=== PATIENT | female | born 1955 | race Caucasian/White ===

== ENCOUNTER 2019-08-29 17:20 | Observation (INO) | payer OTHER ==
[2019-08-29 17:58] LABS: Absolute Lymphocytes (CBC) 0.6 K/uL (0.7-4.9); Basophils % 0.2 % (0-1.3); Hematocrit 43.5 % (36.0-45.0); Lymphocytes % 7.2 % (15.3-44.8); MPV 8.2 fL (7.6-11.3); RBC Red Blood Cell Count 4.88 M/uL (3.86-4.86)
[2019-08-29 18:01] LABS: Protime INR 1.1
[2019-08-29 18:11] LABS: Urine Bacteria <20 /HPF (<20); Urine Culture Reflex Order NOT NEEDED; Urine RBC <5 /HPF (NONE SEEN)
--- NOTE | 2019-08-29 18:14 | RAD REPORT ---
EXAM DESCRIPTION: Elvi Single View08/29/2019 6:09 pm CLINICAL HISTORY: Chest pain COMPARISON: none FINDINGS: The lungs appear clear of acute infiltrate. The heart is normal size IMPRESSION: No acute abnormalities displayed
[2019-08-29 18:19] LABS: ALT/SGPT 19 U/L (12-78); AST/SGOT 18 U/L (15-37); Albumin 4.3 g/dL (3.4-5.0); Alkaline Phosphatase 113 U/L (45-117); BUN Blood Urea Nitrogen 7 mg/dL (7-18); Bicarbonate 27 mmol/L (21-32); Bilirubin Direct 0.1 mg/dL (0-0.2); Bilirubin Total 0.3 mg/dL (0.2-1.0); Glucose Level 96 mg/dL (74-106); Magnesium 2.1 mg/dL (1.8-2.4); NT PRO-BNP 81 pg/mL (<125); Potassium 3.4 mmol/L (3.5-5.1); Protein, Total 8.1 g/dL (6.4-8.2); Sodium Level 136 mmol/L (136-145); Troponin (Emerg Dept Use Only) < 0.02 ng/mL (0.0-0.045)
[2019-08-29] MEDS ORDERED: NA CHLORIDE 0.9% 250 ML ONE (18:19)
[2019-08-29] MEDS ORDERED: ASPIRIN EC 81 MG TAB PO ONE (18:19)
[2019-08-29] MEDS ORDERED: AZITHROMYCIN 500 MG INJ IVPB ONE (18:19)
[2019-08-29] MEDS ORDERED: FAMOTIDINE 20 MG/2 ML VIAL IV ONE (18:20)
[2019-08-29] MEDS ORDERED: NA CHLORIDE 0.9% 1,000 ML ONE (18:20)
[2019-08-29] MEDS ORDERED: CEFTRIAXONE/SWI 1gm 1 GM/10 ML SYR ONE (18:20)
[2019-08-29] MEDS ORDERED: ONDANSETRON 4 MG/2 ML VIAL ONE (18:27)
--- NOTE | 2019-08-29 18:53 | ER ---
Nurse's Notes [facility] Name: Jennifer Byers Age: 63 yrs Sex: Female : 1955 Arrival Date: 08/29/2019 Time: 17:22 Bed 25 Private MD: Diagnosis: Fever, unspecified;Essential (primary) hypertension;Chest pain, unspecified;Acute upper respiratory infection, unspecified Presentation: 08/29 17:29 Presenting complaint: Patient states: Midsternal chest pain with nausea, pain radiating sg up into the right side of the neck, pt states having been diagnosed with Bronchitis at urgent care and has taken one dose of abx, z-karen at around 1500 today. Transition of care: patient was not received from another setting of care. Onset of symptoms was August 29, 2019. Risk Assessment: Do you want to hurt yourself or someone else? Patient reports no desire to harm self or others. Initial Sepsis Screen: Does the patient meet any 2 criteria? No. Patient's initial sepsis screen is negative. Does the patient have a suspected source of infection? No. Patient's initial sepsis screen is negative. Care prior to arrival: None. 17:29 Method Of Arrival: Ambulatory sg 17:29 Acuity: KALPESH 3 sg Historical: - Allergies: 17:31 No Known Allergies; sg - Home Meds: 17:31 amlodipine oral [Active]; sg - PMHx: 17:31 Hypertension; sg - PSHx: 17:31 None; sg - Immunization history:: Adult Immunizations up to date. - Social history:: Smoking status: Patient/guardian denies using tobacco. - Ebola Screening: : Patient negative for fever greater than or equal to 101.5 degrees Fahrenheit, and additional compatible Ebola Virus Disease symptoms Patient denies exposure to infectious person Patient denies travel to an Ebola-affected area in the 21 days before illness onset No symptoms or risks identified at this time. - Family history:: not pertinent. Screenin:53 Abuse screen: Denies threats or abuse. Denies injuries from another. Nutritional mg2 screening: No deficits noted. Tuberculosis screening: No symptoms or risk factors identified. Fall Risk IV access (20 points). Assessment: 18:29 General: Appears in no apparent distress. comfortable, Behavior is calm, cooperative. mg2 Pain: Complains of pain in chest Pain radiates to neck. Neuro: Level of Consciousness is awake, alert, obeys commands, Oriented to person, place, time, situation. Cardiovascular: Capillary refill < 3 seconds Patient's skin is warm and dry. Respiratory: Airway is patent Respiratory effort is even, unlabored, Respiratory pattern is regular, symmetrical. GI: Abdomen is flat, non-distended, Reports nausea. : Urine is pls see urine dip. : Reports pain in bilateral flank(s), in lower back. EENT: No signs and/or symptoms were reported regarding the EENT system. Derm: Skin is intact, is healthy with good turgor, Skin is pink, warm \T\ dry. normal. Musculoskeletal: Circulation, motion, and sensation intact. Capillary refill < 3 seconds. 20:28 Reassessment: patient agreed for admission. updated about the waiting time. mg2 Vital Signs: 17:52 BP 142 / 73; Pulse 98; Resp 18; Temp 99.2; Pulse Ox 98% on R/A; mg2 19:04 Weight 65.32 kg; Height 5 ft. 4 in. (162.56 cm); rv 20:28 BP 115 / 60; Pulse 75; Resp 18; Pulse Ox 98% on R/A; mg2 22:12 BP 120 / 89; Pulse 78; Resp 18; Temp 99.4; Pulse Ox 98% on R/A; mg2 19:04 Body Mass Index 24.72 (65.32 kg, 162.56 cm) rv ED Course: 17:22 Patient arrived in ED. rg4 17:28 Arm band placed on. sg 17:29 Jhon Alan, TRAE is Primary Nurse. mg2 17:30 Triage completed. sg 17:53 Cordell Barrett MD is Attending Physician. josé luis 17:53 No provider procedures requiring assistance completed. Inserted saline lock: 20 gauge mg2 in left antecubital area, using aseptic technique. Blood collected. 18:08 XRAY Chest (1 view) In Process Unspecified. EDMS 18:30 Patient has correct armband on for positive identification. media monitor on. Pulse mg2 ox on. NIBP on. Door closed. 18:51 Eda Orona MD is Hospitalizing Provider. josé luis 22:10 Patient admitted, IV remains in place. mg2 Administered Medications: 18:27 Drug: Zithromax 500 mg Route: IVPB; Infused Over: 1 hrs; Site: left antecubital; mg2 22:08 Follow up: Response: No adverse reaction; IV Status: Completed infusion; IV Intake: mg2 250ml 18:27 Drug: Pepcid 20 mg Route: IVP; Site: left antecubital; mg2 22:07 Follow up: Response: No adverse reaction mg2 18:28 Drug: NS 0.9% 1000 ml Route: IV; Rate: 1 bolus; Site: left antecubital; mg2 22:09 Follow up: Response: No adverse reaction; IV Status: Completed infusion; IV Intake: mg2 1000ml 18:28 Drug: Aspirin 162 mg Route: PO; mg2 22:08 Follow up: Response: No adverse reaction mg2 18:28 Drug: Rocephin 1 grams Route: IV; Rate: per protocol; Site: left antecubital; mg2 22:08 Follow up: Response: No adverse reaction; IV Status: Completed infusion mg2 19:16 Drug: Lovenox 1 mg/kg Route: Sub-Q; Site: left lower abdomen; mg2 22:07 Follow up: Response: No adverse reaction mg2 19:16 Drug: Lopressor 25 mg Route: PO; mg2 22:07 Follow up: Response: No adverse reaction mg2 Intake: 22:08 IV: 250ml; Total: 250ml. mg2 22:09 IV: 1000ml; Total: 1250ml. mg2 Outcome: 18:52 Decision to Hospitalize by Provider. josé luis 22:10 Admitted to Tele accompanied by nurse, via wheelchair, room 427, with chart, Report mg2 called to TRAE Green 22:10 Condition: stable 22:10 Instructed on the need for admit, Demonstrated understanding of instructions. 22:13 Patient left the ED. mg2 Signatures: Dispatcher [employer] EDOleg Schmitz RN RN sg Anderson, Corey, MD MD cha Garcia, Rubi rg4 Jhon Alan RN RN mg2 Luis Desouza RN RN rv Corrections: (The following items were deleted from the chart) 18:28 17:52 BP 142 / 73; Pulse 78bpm; Resp 18bpm; Pulse Ox 98%; mg2 mg2
--- NOTE | 2019-08-29 18:54 | EDPHYS ---
Physician Documentation [facility] Name: Jennifer Byers Age: 63 yrs Sex: Female : 1955 Arrival Date: 08/29/2019 Time: 17:22 Bed 25 Private MD: ED Physician Cordell Barrett HPI: 08/29 17:59 This 63 yrs old Female presents to ER via Ambulatory with complaints of josé luis Nausea, Chest Pain. 17:59 The patient presents to the emergency department with nausea, vomiting. Onset: The josé luis symptoms/episode began/occurred just prior to arrival, this morning. Possible causes: unknown. 18:00 The patient or guardian reports chest pain that is located primarily in the anterior josé luis chest wall, bilaterally. Onset: just prior to arrival, this morning. The symptoms are aggravated by nothing. The symptoms are alleviated by nothing. Severity of symptoms: At their worst the symptoms were mild, in the emergency department the symptoms are unchanged. Historical: - Allergies: 17:31 No Known Allergies; sg - Home Meds: 17:31 amlodipine oral [Active]; sg - PMHx: 17:31 Hypertension; sg - PSHx: 17:31 None; sg - Immunization history:: Adult Immunizations up to date. - Social history:: Smoking status: Patient/guardian denies using tobacco. - Ebola Screening: : Patient negative for fever greater than or equal to 101.5 degrees Fahrenheit, and additional compatible Ebola Virus Disease symptoms Patient denies exposure to infectious person Patient denies travel to an Ebola-affected area in the 21 days before illness onset No symptoms or risks identified at this time. - Family history:: not pertinent. ROS: 18:00 Constitutional: Negative for fever, chills, and weight loss, Eyes: Negative for injury, josé luis pain, redness, and discharge, ENT: Negative for injury, pain, and discharge, Neck: Negative for injury, pain, and swelling, Cardiovascular: Negative for chest pain, palpitations, and edema, Respiratory: Negative for shortness of breath, cough, wheezing, and pleuritic chest pain, Abdomen/GI: Negative for abdominal pain, nausea, vomiting, diarrhea, and constipation, : Negative for injury, bleeding, discharge, and swelling, MS/Extremity: Negative for injury and deformity, Skin: Negative for injury, rash, and discoloration, Neuro: Negative for headache, weakness, numbness, tingling, and seizure, Psych: Negative for depression, anxiety, suicide ideation, homicidal ideation, and hallucinations, Allergy/Immunology: Negative for hives, rash, and allergies, Endocrine: Negative for neck swelling, polydipsia, polyuria, polyphagia, and marked weight changes, Hematologic/Lymphatic: Negative for swollen nodes, abnormal bleeding, and unusual bruising. 18:00 Respiratory: Positive for cough, with no reported sputum. 18:00 Back: Negative for injury or acute deformity. Exam: 18:00 Constitutional: This is a well developed, well nourished patient who is awake, alert, josé luis and in no acute distress. Head/Face: Normocephalic, atraumatic. Eyes: Pupils equal round and reactive to light, extra-ocular motions intact. Lids and lashes normal. Conjunctiva and sclera are non-icteric and not injected. Cornea within normal limits. Periorbital areas with no swelling, redness, or edema. ENT: Nares patent. No nasal discharge, no septal abnormalities noted. Tympanic membranes are normal and external auditory canals are clear. Oropharynx with no redness, swelling, or masses, exudates, or evidence of obstruction, uvula midline. Mucous membranes moist. Neck: Trachea midline, no thyromegaly or masses palpated, and no cervical lymphadenopathy. Supple, full range of motion without nuchal rigidity, or vertebral point tenderness. No Meningismus. Chest/axilla: Normal chest wall appearance and motion. Nontender with no deformity. No lesions are appreciated. Cardiovascular: Regular rate and rhythm with a normal S1 and S2. No gallops, murmurs, or rubs. Normal PMI, no JVD. No pulse deficits. Abdomen/GI: Soft, non-tender, with normal bowel sounds. No distension or tympany. No guarding or rebound. No evidence of tenderness throughout. Back: No spinal tenderness. No costovertebral tenderness. Full range of motion. Female : Normal external genitalia. Skin: Warm, dry with normal turgor. Normal color with no rashes, no lesions, and no evidence of cellulitis. MS/ Extremity: Pulses equal, no cyanosis. Neurovascular intact. Full, normal range of motion. Neuro: Awake and alert, GCS 15, oriented to person, place, time, and situation. Cranial nerves II-XII grossly intact. Motor strength 5/5 in all extremities. Sensory grossly intact. Cerebellar exam normal. Normal gait. Psych: Awake, alert, with orientation to person, place and time. Behavior, mood, and affect are within normal limits. 18:00 Respiratory: the patient does not display signs of respiratory distress, Respirations: normal, Breath sounds: are clear throughout, Respiratory rate: 18 Vital Signs: 17:52 BP 142 / 73; Pulse 98; Resp 18; Temp 99.2; Pulse Ox 98% on R/A; mg2 19:04 Weight 65.32 kg; Height 5 ft. 4 in. (162.56 cm); rv 20:28 BP 115 / 60; Pulse 75; Resp 18; Pulse Ox 98% on R/A; mg2 22:12 BP 120 / 89; Pulse 78; Resp 18; Temp 99.4; Pulse Ox 98% on R/A; mg2 19:04 Body Mass Index 24.72 (65.32 kg, 162.56 cm) rv MDM: 17:54 Patient medically screened. [facility] 18:01 Data reviewed: vital signs, nurses notes, lab test result(s), EKG, radiologic studies, [facility] CT scan, plain films. 08/29 17:38 Order name: Basic Metabolic Panel; Complete Time: 18:49 mg2 08/29 17:38 Order name: CBC with Diff [facility] 08/29 17:38 Order name: LFT's; Complete Time: 18:49 mg2 08/29 17:38 Order name: Magnesium; Complete Time: 18:49 mg2 08/29 17:38 Order name: NT PRO-BNP; Complete Time: 18:49 mg2 08/29 17:38 Order name: PT-INR; Complete Time: 18:49 mg2 08/29 17:38 Order name: Troponin (emerg Dept Use Only); Complete Time: 18:49 mg2 08/29 17:52 Order name: Urine Microscopic Only; Complete Time: 18:49 mg2 08/29 17:59 Order name: Lipase; Complete Time: 18:49 josé luis 08/29 17:59 Order name: Influenza Screen (a \T\ B) [facility] 08/29 17:59 Order name: Blood Culture Adult (2) [facility] 08/29 18:22 Order name: Urine Dipstick--Ancillary (enter results) 08/29 20:36 Order name: CBC Smear Scan [facility] 08/29 21:36 Order name: Basic Metabolic Panel [facility] 08/29 17:38 Order name: XRAY Chest (1 view); Complete Time: 18:49 mg2 08/29 21:36 Order name: Echo with Doppler [facility] 08/29 21:36 Order name: Basic Metabolic Panel [facility] 08/29 21:36 Order name: CBC with Automated Diff [facility] 08/29 21:36 Order name: CBC with Automated Diff [facility] 08/29 21:36 Order name: Lipid Profile [facility] 08/29 21:36 Order name: Lipid Profile [facility] 08/29 21:36 Order name: Troponin I [facility] 08/29 21:36 Order name: Troponin I [facility] 08/29 21:36 Order name: Troponin I [facility] 08/29 17:38 Order name: EKG; Complete Time: 17:39 mg2 08/29 17:38 Order name: Cardiac monitoring; Complete Time: 17:52 mg2 08/29 17:38 Order name: EKG - Nurse/Tech; Complete Time: 17:52 mg2 08/29 17:38 Order name: IV Saline Lock; Complete Time: 17:52 mg2 08/29 17:38 Order name: Labs collected and sent; Complete Time: 17:52 mg2 08/29 17:38 Order name: O2 Per Protocol; Complete Time: 17:52 mg2 08/29 17:38 Order name: O2 Sat Monitoring; Complete Time: 17:52 mg2 08/29 17:46 Order name: Urine Dipstick-Ancillary (obtain specimen); Complete Time: 17:52 mg2 08/29 21:36 Order name: CONS Physician Consult [facility] 08/29 21:36 Order name: Heart Healthy [facility]IA Administered Medications: 18:27 Drug: Zithromax 500 mg Route: IVPB; Infused Over: 1 hrs; Site: left antecubital; mg2 22:08 Follow up: Response: No adverse reaction; IV Status: Completed infusion; IV Intake: mg2 250ml 18:27 Drug: Pepcid 20 mg Route: IVP; Site: left antecubital; mg2 22:07 Follow up: Response: No adverse reaction mg2 18:28 Drug: NS 0.9% 1000 ml Route: IV; Rate: 1 bolus; Site: left antecubital; mg2 22:09 Follow up: Response: No adverse reaction; IV Status: Completed infusion; IV Intake: mg2 1000ml 18:28 Drug: Aspirin 162 mg Route: PO; mg2 22:08 Follow up: Response: No adverse reaction mg2 18:28 Drug: Rocephin 1 grams Route: IV; Rate: per protocol; Site: left antecubital; mg2 22:08 Follow up: Response: No adverse reaction; IV Status: Completed infusion mg2 19:16 Drug: Lovenox 1 mg/kg Route: Sub-Q; Site: left lower abdomen; mg2 22:07 Follow up: Response: No adverse reaction mg2 19:16 Drug: Lopressor 25 mg Route: PO; mg2 22:07 Follow up: Response: No adverse reaction mg2 Disposition: 08/29/19 18:52 Hospitalization ordered by Eda Orona for Observation. Preliminary diagnosis are Fever, unspecified, Essential (primary) hypertension, Chest pain, unspecified, Acute upper respiratory infection, unspecified. - Bed requested for Telemetry/MedSurg (observation). - Status is Observation. mg2 - Condition is Fair. - Problem is new. - Symptoms have improved. UTI on Admission? No Signatures: Dispatcher [employer] EDMS Oleg Roberto RN RN Cordell Barrett MD MD cha Garcia, Cindy, RN RN Jhon Alan RN RN mg2 Corrections: (The following items were deleted from the chart) 22:00 18:52 Hospitalization Ordered by Eda Orona MD for Observation. Preliminary cg diagnosis is Fever, unspecified; Essential (primary) hypertension; Chest pain, unspecified; Acute upper respiratory infection, unspecified. Bed requested for Telemetry/MedSurg (observation). Status is Observation. Condition is Fair. Problem is new. Symptoms have improved. UTI on Admission? No. josé luis 22:13 22:00 08/29/2019 18:52 Hospitalization Ordered by Eda Orona MD for Observation. mg2 Preliminary diagnosis is Fever, unspecified; Essential (primary) hypertension; Chest pain, unspecified; Acute upper respiratory infection, unspecified. Bed requested for Telemetry/MedSurg (observation). Status is Observation. Condition is Fair. Problem is new. Symptoms have improved. UTI on Admission? No. cg
[2019-08-29 19:07] LABS: Urine Blood TRACE (NEG); Urine Glucose NEGATIVE (NEG); Urine Protein NEGATIVE (NEG); Urine pH 7.5 (5.0-7.0)
[2019-08-29] MEDS ORDERED: METOPROLOL TAR 25 MG TAB ONE (19:11)
[2019-08-29] MEDS ORDERED: ENOXAPARIN 60 MG/0.6 ML SQ ONE (19:11)
[2019-08-29 20:35] LABS: Blood Morphology Comment NOT SEEN (NOT SEEN); Platelet Estimate ADEQ; Urine White Blood Cell Casts OK
[2019-08-29] MEDS ORDERED: ACETAMINOPHEN 500 MG TAB PO PRN (21:31)
[2019-08-29] MEDS ORDERED: ALPRAZOLAM 0.25 MG TABLET PO PRN (21:31)
[2019-08-29] MEDS ORDERED: MORPHINE 4 MG/ML SYR IV PRN (21:31)
[2019-08-29] MEDS ORDERED: SODIUM CHLORIDE 0.9% 10ML INJ IV PRN (21:35)
[2019-08-29] MEDS ORDERED: PANTOPRAZOLE 40 MG INJ IVP ONE (21:35)
[2019-08-29 23:13] VITALS: BMI 24.7
[2019-08-30 00:02] LABS: Urine Appearance CLEAR; Urine Bilirubin NEGATIVE (NEG); Urine Blood NEGATIVE (NEG); Urine Color YELLOW; Urine Glucose NEGATIVE (NEG); Urine Protein NEGATIVE (NEG); Urine Urobilinogen 0.2 mg/dL (0.2-1.0)
[2019-08-30 00:07] LABS: Urine Microscopic Reflex ORDER UMIC
[2019-08-30] MEDS ORDERED: ONDANSETRON 4 MG/2 ML VIAL IV PRN (00:16)
[2019-08-30 01:12] LABS: Urine Bacteria <20 /HPF (<20); Urine Culture Reflex Order REFLEXED; Urine Urothelial Cells <5 /HPF (NONE SEEN)
[2019-08-30 05:15] LABS: Absolute Lymphocytes (CBC) 1.1 K/uL (0.7-4.9); Basophils % 0.3 % (0-1.3); Hematocrit 37.3 % (36.0-45.0); Lymphocytes % 18.6 % (15.3-44.8); MPV 8.8 fL (7.6-11.3); RBC Red Blood Cell Count 4.24 M/uL (3.86-4.86)
[2019-08-30 05:18] LABS: Potassium 3.6 mmol/L (3.5-5.1)
[2019-08-30 08:25] VITALS: BP 128/70; TEMP 99.1
--- NOTE | 2019-08-30 08:46 | P.HP ---
Certification for Inpatient Patient admitted to: Observation With expected LOS: <2 Midnights Patient will require the following post-hospital care: None Practitioner: I am a practitioner with admitting privileges, knowledge of patient current condition, hospital course, and medical plan of care. Services: Services provided to patient in accordance with Admission requirements found in Title 42 Section 412.3 of the Code of Federal Regulations Patient History Date of Service: 08/29/19 Reason for admission: CHEST PAIN RULE OUT ACUTE CORONARY SYNDROME History of Present Illness: Patient is a 63-year-old female came to the hospital with chest discomfort and some nausea. She described her symptoms of being mainly in the upper GI tract. Patient had chest pain and was nauseous. She came into the ER for further evaluation. In the ER she was given some pain medication and her chest pain has subsided. She denies any risk factors of coronary artery disease. She will be admitted to the hospital to be ruled out for acute coronary syndrome. She may need further outpatient testing in the near future. This would include stress test and if this is negative then follow up with GI. Allergies Penicillins Allergy (Verified 08/29/19 23:02) Hives/Rash - Past Medical/Surgical History Has patient received pneumonia vaccine in the past: No Diabetic: No -: HTN Past Surgical History: Patient denies surgical history - Family History Father Family History: Reviewed- Non-Contributory - Social History Smoking Status: Never smoker Alcohol use: No CD- Drugs: No Caffeine use: Yes Place of Residence: Home Review of Systems 10-point ROS is otherwise unremarkable Physical Examination - Vital Signs Temperature: 99.1 F Blood Pressure: 128/70 Pulse: 90 Respirations: 18 Pulse Ox (%): 96 - Physical Exam General: Alert, In no apparent distress, Oriented x3 HEENT: Atraumatic, PERRLA, Mucous membr. moist/pink, EOMI, Sclerae nonicteric Neck: Supple, 2+ carotid pulse no bruit, No LAD, Without JVD or thyroid abnormality Respiratory: Clear to auscultation bilaterally, Normal air movement Cardiovascular: Regular rate/rhythm, Normal S1 S2, No murmurs Gastrointestinal: Normal bowel sounds, Soft and benign, Non-distended, No tenderness Musculoskeletal: No clubbing, No swelling, No tenderness Integumentary: No rashes Neurological: Normal gait, Normal speech, Normal strength at 5/5 x4 extr, Normal tone, Sensation intact, Cranial nerves 3-12 intact, Normal affect Lymphatics: No axilla or inguinal lymphadenopathy - Studies Laboratory Data (last 24 hrs) 08/29/19 17:45: Lipase 224 08/29/19 17:45: PT 12.9 H, INR 1.10 08/29/19 17:45: WBC 8.5, Hgb 14.6, Hct 43.5, Plt Count 194 08/29/19 17:45: Sodium 136, Potassium 3.4 L, BUN 7, Creatinine 0.63, Glucose 96 , Magnesium 2.1, Total Bilirubin 0.3, AST 18, ALT 19, Alkaline Phosphatase 113 Microbiology Data (last 24 hrs): 08/29/19 18:09 Nasopharnyx Influenza Type A Antigen Screen - Final 08/29/19 18:09 Nasopharnyx Influenza Type B Antigen Screen - Final Assessment & Plan - Problems (Diagnosis) (1) Chest pain, rule out acute myocardial infarction Current Visit: Yes Status: Acute (2) Gastritis Current Visit: Yes Status: Acute (3) Nausea Current Visit: Yes Status: Acute - Plan 1. Serial troponins and EKG 2. Cardiology consultation 3. Echocardiogram and outpatient stress test 4. Anti-platelet therapy, anti coagulation, beta-laura, statin, and O2 as needed 5. IV morphine for pain 6. Nitro p.r.n. Discharge Plan: Home Plan to discharge in: 24 Hours - Advance Directives Does patient have a Living Will: No Does patient have a Durable POA for Healthcare: No - Code Status/Comfort Care Code Status Assessed: Yes Code Status: Full Code Critical Care: No Time Spent Managing PTS Care (In Minutes): 40
[2019-08-30] MEDS ORDERED: PANTOPRAZOLE 40 MG INJ IVP SCH (09:00)
[2019-08-30] MEDS ORDERED: ASPIRIN EC 81 MG TAB PO SCH (09:00)
[2019-08-30] MEDS ORDERED: ENOXAPARIN 40 MG/0.4 ML SQ SCH (09:00)
[2019-08-30] MEDS ORDERED: METOPROLOL TAR 50 MG TAB PO SCH (09:00)
[2019-08-30 11:00] VITALS: O2SAT 96
--- NOTE | 2019-08-30 14:07 | EKG ---
Test Date: 2019-08-29 Test Time: 17:37:18 Marker Maker: RV MEASUREMENT RESULTS: Intervals: Rate: 99 [place]: 170 QRSD: 76 QT: 358 QTc: 459 [place]: P: 57 [place]: 170 QRS: 71 T: 63 INTERPRETIVE STATEMENTS: Normal sinus rhythm Normal ECG No previous ECG available for comparison Electronically Signed On 08-30-19 14:06:13 DAMAGE PREVENTION COORDINATOR by Jones Navarro
--- NOTE | 2019-08-30 15:36 | CON ---
Date of Consultation: 08/30/[address] Orona on 08/29/2019. I saw the patient on 08/30/2019. Reason For Consultation: Chest pain. History Of Present Illness: Ms. Byers is 63, has a history of hypertension, lives in the [place], and is going back home tomorrow. She basically came in with fever that she has had for couple of day s; atypical chest pain, sharp, stabbing; nausea; anxiety. No vomiting. No PND, orthopnea, pedal sheryl ma, palpitation, or syncope. By the time I saw her, she has already ruled out for OR. Past Medical History: Include hypertension. Review of Systems: Negative. Social History: Negative. Family History: Negative. Allergies: SHE IS ALLERGIC TO PENICILLIN. Medications: Medications at home include amlodipine. Physical Examination: Vital signs: Stable. She was afebrile. HEENT: Negative. Neck: Supple without any bruit, lymphadenopathy, JVD, or thyromegaly. Chest: Clear to auscultation and percussion. Cardiac: Revealed a regular rhythm and rate without any murmurs, gallops, or rubs. Abdomen: Benign. Extremities: Revealed no clubbing, cyanosis, or edema. Diagnostic Data: All normal. EKG, x-ray, and troponin were normal. Impression And Plan: 1.Atypical chest pain, most likely pleuritic. 2.Fever, most likely secondary to viral syndrome. 3.Hypertension, well controlled. Ms. Byers is feeling back to normal. I am comfortable with her going home today. May not be a ba d idea to put her on some antibiotics and maybe some proton pump inhibitors. We cannot do any testin g today because there is no staff on-call for stress test or echocardiography and I have suggested th at she follows up with her primary MD as soon as she goes back home and have a stress test and an ult rasound done as an outpatient. HENRY/IAN Voice ID: [id number] Report ID: [id number]
--- NOTE | 2019-09-05 08:46 | P.DS ---
Discharge Date: 08/30/19 Disposition: ROUTINE DISCHARGE Discharge Condition: GOOD Reason for Admission: CHEST PAIN RULE OUT ACUTE CORONARY SYNDROME - Problems (1) Chest pain, rule out acute myocardial infarction Status: Acute (2) Gastritis Status: Acute (3) Nausea Status: Acute Brief History of Present Illness: Patient is a 63-year-old female came to the hospital with chest discomfort and some nausea. She described her symptoms of being mainly in the upper GI tract. Patient had chest pain and was nauseous. She came into the ER for further evaluation. In the ER she was given some pain medication and her chest pain has subsided. She denies any risk factors of coronary artery disease. She will be admitted to the hospital to be ruled out for acute coronary syndrome. She may need further outpatient testing in the near future. This would include stress test and if this is negative then follow up with GI. Hospital Course: Patient had serial troponins and EKG which were negative. Clinically patient is doing well and will be followed up as an outpatient with Cardiology. Return to the ER if chest pain worsened. Patient is stable for discharge home. Vital Signs/Physical Exam: Temp Pulse Resp BP Pulse Ox 99.1 F 90 18 128/70 96 08/30/19 08:46 08/30/19 09:03 08/30/19 08:46 08/30/19 09:03 08/30/19 08:46 General: Alert, In no apparent distress, Oriented x3 Laboratory Data at Discharge: WBC 6.0 K/uL (4.3-10.9) D 08/30/19 04:38 Hgb 12.7 g/dL (12.0-15.0) 08/30/19 04:38 Hct 37.3 % (36.0-45.0) 08/30/19 04:38 Plt Count 188 K/uL (152-406) 08/30/19 04:38 PT 12.9 SECONDS (9.5-12.5) H 08/29/19 17:45 INR 1.10 08/29/19 17:45 Sodium 142 mmol/L (136-145) 08/30/19 04:38 Potassium 3.6 mmol/L (3.5-5.1) 08/30/19 04:38 BUN 7 mg/dL (7-18) 08/30/19 04:38 Creatinine 0.67 mg/dL (0.55-1.3) 08/30/19 04:38 Glucose 95 mg/dL (74-106) 08/30/19 04:38 Magnesium 2.1 mg/dL (1.8-2.4) 08/29/19 17:45 Total Bilirubin 0.3 mg/dL (0.2-1.0) 08/29/19 17:45 AST 18 U/L (15-37) 08/29/19 17:45 ALT 19 U/L (12-78) 08/29/19 17:45 Alkaline Phosphatase 113 U/L (45-117) 08/29/19 17:45 Troponin I < 0.02 ng/mL (0.0-0.045) 08/30/19 04:38 Triglycerides 54 mg/dL (<150) 08/29/19 23:06 Cholesterol 212 mg/dL (<200) H 08/29/19 23:06 HDL Cholesterol 65 mg/dL (40-60) H 08/29/19 23:06 Cholesterol/HDL Ratio 3.26 08/29/19 23:06 Lipase 224 U/L (73-393) 08/29/19 17:45 Home Medications: Ondansetron HCl [Zofran] 4 mg PO Q6H PRN #30 tablet 08/30/19 Pantoprazole [Protonix Tab] 40 mg PO DAILY #30 tab 08/30/19 New Medications: Ondansetron HCl [Zofran] 4 mg PO Q6H PRN #30 tablet PRN Reason: Nausea / Vomiting Pantoprazole [Protonix Tab] 40 mg PO DAILY #30 tab Patient Discharge Instructions: OK TO DC IV AND DC HOME. FOLLOW-UP WITH PRIMARY CARE PROVIDER IN 1-2 WEEKS. FOLLOW-UP WITH CARDIOLOGY IN 1-2 WEEKS. RETURN TO THE ER IF symptoms worse. CALL or TEXT DR. BAILEY AT [phone] IF ANY QUESTIONS REGARDING HOSPITAL STAY. PLEASE CALL THE FLOOR AT [phone] IF ANY MEDICATION OR NURSING QUESTIONS. Diet: Regular Activity: Fall precautions Time spent managing pt's care (in minutes): 30
== END 2019-08-30 10:48 | disposition home or self-care (01) ==
LOC: ER 17:20 → ERHOLD 21:57 → 4TH 22:10
PROVIDERS: ADMIT Hospitalist; ATTEND Hospitalist
DX: R07.9 Chest pain, unspecified (principal); K29.00 Acute gastritis without bleeding; I10 Essential (primary) hypertension; Z88.0 Allergy status to penicillin
CPT/HCPCS: 96365; 93005; 87040 ×2; 87088; 85025 ×2; 80048 ×2; 36415; 83735; 85610; 80061; 80076; 84484 ×3; 83690; 83880; 87804 ×2; 71045; 96375; 96372; 99285; 96366; C9113 ×2; J0456; J1650 ×2; J0696; J7030 ×2; J2405 ×2; G0378 ×2; 81003; 81015; 87086